=== PATIENT | female | born 2000 | race African-American/Black ===

== ENCOUNTER 2021-07-29 19:02 | Emergency (ER) | payer OTHER ==
[~2021-07-29] VITALS: Ht 162.6 cm; Wt 45.4 kg
[2021-07-29 21:07] VITALS: BP 105/74; TEMP 97.9
== END 2021-07-29 21:07 | disposition home or self-care (01) ==
LOC: ED 19:02
DX: S90.32XA Contusion of left foot, initial encounter (principal); S93.692A Other sprain of left foot, initial encounter; W20.8XXA Other cause of strike by thrown, projected or falling object, initial encounter; Y92.89 Other specified places as the place of occurrence of the external cause
CPT/HCPCS: 96372; 99283; J1885